=== PATIENT | female | born 1975 ===

== ENCOUNTER 2022-03-17 16:26 | Emergency (ER) | payer MEDICAID ==
[2022-03-17 17:19] LABS: STREP A BY PCR NOT DETECTED (NOT DETECT)
[2022-03-17 17:29] LABS: CORONAVIRUS COVID-19 NAA NEGATIVE (NEGATIVE); RESPIRATORY SYNCYTIAL VIR NAA NEGATIVE (NEGATIVE)
[2022-03-17] MEDS: Take Home: Codeine/guaiFENesin 100-10 MG/5 ML Syrup 5 ML, 2 Cup Pack PO ONE (17:50)
[2022-03-17] MEDS: cefTRIAXone 1 GM, Lidocaine 1% 2.1 ML IM ONE ×2 (17:50)
== END 2022-03-17 18:20 | disposition home or self-care (01) ==
LOC: VM.ED 16:26
DX: J32.9 Chronic sinusitis, unspecified (principal); Z72.0 Tobacco use; Z20.822 Contact with and (suspected) exposure to COVID-19
CPT/HCPCS: 0241U; 87651; 96372; 99283; A9270; J0696